=== PATIENT | female | born 1965 | race Caucasian/White ===

== ENCOUNTER 2016-05-25 07:19 | Day surgery (SDC) | payer OTHER ==
[~2016-05-25] VITALS: Ht 172.7 cm; Wt 95.3 kg
[~2016-05-25 07:19] MED LIST: DOMP10T PO; DOMPERIDONE; EFFEXOR XR150 MG PO; EFFEXOR XR75 MG PO; ERGOCALCIF50000 UNIT PO; FISH OIL 1,0001 EAC7 PO; FUROSEMIDE40 MG PO; HALCION0.25 MG PO; INSULIN; INSULIN PUMP SCCONT; LINZESS145 MCG PO; OMEPRAZOLE20 MG PO; PREVACID30 MG PO; SYNTHROID75 MCG PO; SYNTHROID88 MCG PO; TRAMADOL HCL50 MG PO; VITAMIN D; XANAX0.5 MG PO; ZETIA10 MG PO; ZOFRAN8 MG PO; ZYRTEC10 M2 PO; [UNRECOGNIZED DRUG - OTHER] PO
[2016-05-25 08:08] LABS: POINT-OF-CARE METER ID UU14174212
== END 2016-05-25 09:10 | disposition home or self-care (01) ==
LOC: PAIN 07:19 → SDC 07:45 → PAIN 07:45 → CATH 08:15 → PAIN 09:10
PROVIDERS: Anesthesiology Pain Medicine
PROC: 3E0S33Z Introduction of Anti-inflammatory into Epidural Space, Percutaneous Approach (ICD-10-PCS; principal; 2016-05-25)
DX: M54.16 Radiculopathy, lumbar region (principal); F41.9 Anxiety disorder, unspecified; M51.36 Other intervertebral disc degeneration, lumbar region; M43.16 Spondylolisthesis, lumbar region; E10.40 Type 1 diabetes mellitus with diabetic neuropathy, unspecified; Z96.41 Presence of insulin pump (external) (internal); F32.9 Major depressive disorder, single episode, unspecified; G89.29 Other chronic pain; E66.9 Obesity, unspecified; Z68.31 Body mass index [BMI] 31.0-31.9, adult; Z88.8 Allergy status to other drugs, medicaments and biological substances
CPT/HCPCS: 82948; J1100; J2250; J2405; J3010

== ENCOUNTER 2016-09-17 10:23 | Day surgery (SDC) | payer OTHER ==
[~2016-09-17] VITALS: Ht 172.7 cm; Wt 95.3 kg
[~2016-09-17 10:23] MED LIST changes: +LIDOCAINE700 MG TD; +NASONEX17 GM BOTH NARES; +NUCYNTA75 MG PO; +TRAZODONE HCL50 MG PO
[2016-09-17 10:57] LABS: POINT-OF-CARE METER ID UU13113694
== END 2016-09-17 11:40 | disposition home or self-care (01) ==
LOC: PAIN 10:23 → SDC 11:00 → PAIN 11:00
PROVIDERS: Anesthesiology Pain Medicine
DX: M47.26 Other spondylosis with radiculopathy, lumbar region (principal); G89.29 Other chronic pain; M54.5 Low back pain; M43.16 Spondylolisthesis, lumbar region; F41.8 Other specified anxiety disorders; E78.5 Hyperlipidemia, unspecified; E10.43 Type 1 diabetes mellitus with diabetic autonomic (poly)neuropathy; K31.84 Gastroparesis; E10.40 Type 1 diabetes mellitus with diabetic neuropathy, unspecified; Z96.41 Presence of insulin pump (external) (internal); Z79.4 Long term (current) use of insulin; E03.9 Hypothyroidism, unspecified; E66.9 Obesity, unspecified; Z68.31 Body mass index [BMI] 31.0-31.9, adult; E55.9 Vitamin D deficiency, unspecified; Z96.89 Presence of other specified functional implants
CPT/HCPCS: 82948; J1100; J2250; J3010

== ENCOUNTER 2016-09-20 14:35 | Emergency (ER) | payer OTHER ==
[~2016-09-20] VITALS: Ht 172.7 cm; Wt 97.5 kg
[2016-09-20 16:45] LABS: BASOPHIL COUNT 0.1 K/uL (0-0.1); EOSINOPHIL (%) 2.1 % (0-5); EOSINOPHIL COUNT 0.2 K/uL (0-0.3); HEMATOCRIT 43.3 % (36.0-46.0); IMMATURE GRANULOCYTE (%) 0.5 % (0.0-0.7); INSTRUMENT ABS NEUTROPHIL CT 4.8 K/uL; LYMPHOCYTE COUNT 3.3 K/uL (1.0-2.8); MCH 25.9 PG (29.0-34.0); MCHC 33.3 G/DL (30.0-36.0); MEAN PLAT.VOLUME 9.4 uM^3 (9.5-12.4); MONOCYTE (%) 5.8 % (3-12); MONOCYTE COUNT 0.5 K/uL (0-0.8); NEUTROPHIL (%) 54.1 % (45-76); NEUTROPHIL COUNT 4.8 K/uL (1.8-6.4); PLATELET COUNT 311 K/uL (156-360); RBC DIS.WIDTH-CV 12.2 % (11.8-14.6); RBC DIS.WIDTH-SD 34.6 % (39-53); RED BLOOD COUNT 5.55 M/uL (3.80-5.20); WHITE BLOOD COUNT 8.9 K/uL (4.1-10.2)
[2016-09-20 16:50] LABS: ADD MIUA? NO; BILIRUBIN NEGATIVE; BLOOD NEGATIVE; COLOR STRAW ((YELLOW)); GLUCOSE (STRIP) NEGATIVE; KETONES NEGATIVE; LEUKOCYTES NEGATIVE; NITRITE NEGATIVE; PROTEIN (STRIP) NEGATIVE; SPECIFIC GRAVITY 1.008 (1.000-1.030); UCUL ADDED? NO; UROBILINOGEN 0.2 MG/DL (0.2-1.0)
[2016-09-20 16:57] LABS: CHLORIDE 100 mEq/L (99-109); POTASSIUM 3.2 mEq/L (3.7-5.4); SODIUM 139 mEq/L (136-147)
[2016-09-20 17:00] LABS: GLUCOSE 118 mg/dL (70-99)
[2016-09-20 17:01] LABS: ANION GAP 10 MEQ/L (2-14)
[2016-09-20 17:02] LABS: TOTAL BILIRUBIN 0.3 mg/dL (0.0-1.0)
[2016-09-20 17:03] LABS: ALKALINE PHOSPHATASE 66 IU/L (3-129); GFR ESTIMATE (CALCULATED) > 59 mL/min/
[2016-09-20 17:04] LABS: UREA NITROGEN (BUN) 11 mg/dL (9-23)
[2016-09-20 17:07] LABS: LIPASE 9 U/L (1.0-51.0)
[2016-09-20 20:44] VITALS: BP 143/84
[2016-09-20] MEDS ORDERED: PERCOCET 5/31 TABLET PO (21:04)
[2016-09-20] MEDS ORDERED: KEFLEX500 MG PO (21:04)
== END 2016-09-20 21:38 | disposition home or self-care (01) ==
LOC: EME 14:35
PROVIDERS: Emergency Medicine
DX: R10.31 Right lower quadrant pain (principal); K31.84 Gastroparesis; E11.43 Type 2 diabetes mellitus with diabetic autonomic (poly)neuropathy; Z43.4 Encounter for attention to other artificial openings of digestive tract; Z87.442 Personal history of urinary calculi; Z90.49 Acquired absence of other specified parts of digestive tract; Z96.41 Presence of insulin pump (external) (internal)
CPT/HCPCS: 74000; 74177; 80053; 81003; 83690; 85025; 99281; 99285; J1200; J2270; J2405; J7030